=== PATIENT | female | born 1940 | race Caucasian/White ===

== ENCOUNTER 2016-08-24 14:48 | Inpatient (IN) | payer MEDICARE ==
--- NOTE | 2016-08-24 15:21 | EDPRACDOC ---
- General Information Chief Complaint: Dyspnea/Resp distress Stated Complaint: OXYGEN LOW Time Seen by Provider: 08/24/16 15:05 Information Source: Patient Mode Of Arrival: Car Home Medications: Home Medications Albuterol Sulfate [Proair Hfa] 2 puff INH Q4-6H PRN 08/24/16 Azithromycin [Zithromax] 0 mg PO DAILY 08/24/16 Levothyroxine Sodium [Synthroid] 50 mcg PO DAILY 08/24/16 Metoprolol Tartrate [Lopressor] 25 mg PO BID 08/24/16 Pravastatin [Pravachol] 40 mg PO HS 08/24/16 Prednisone [Sterapred] 5 mg PO . DIR 08/24/16 Allergies/Adverse Reactions: Allergies Allergy/AdvReac Type Severity Reaction Status Date / Time No Known Allergies Allergy Verified 08/24/16 14:54 - History of Present Illness HPI: COUGH, SOB SINCE THURSDAY LAST WEEK. SEEN BY PCP DR PEREZ WED. GOT KENALOG IM AND Z BERTIN. GETTING WORSE, MORE SOB. SENT BY DR PEREZ TODAY. GOT ROCEPHIN IM TODAY AND DUONEB. H/O COPD, USES INHALER AND NEBULIZER AT HOME. NO FEVER. SOMETIMES PRODUCTIVE COUGH-WHITE. DIARRHEA TODAY. O2 SAT 90% IN OFFICE. SOB WORSE WITH EXERTION. Shortness of Breath: Moderate ED Past Medical History - History Reviewed Yes Nurses notes reviewed and agree except as marked - Patient Medical History Cardiac History: Reports: Hypertension, Hypercholesterolemia Respiratory History: Reports: COPD EDM Review of Systems - Review of Systems ROS Negative Except as Marked: Yes All systems reviewed and were negative except as marked Constitutional: Weakness Eyes: No Symptoms Reported Mouth: No Symptoms Reported Respiratory: Cough, Shortness of Breath Cardiovascular: No Symptoms Reported Gastrointestinal: Diarrhea (TODAY. TOOK LOMOTIL) Genitourinary: No Symptoms Reported Neurological: No Symptoms Reported Musculoskeletal: No Symptoms Reported Integumentary: No Symptoms Reported Allergic/Immunologic: No Symptoms Reported Hematologic: No Symptoms Reported - Physical Exam Constitutional: Alert (Awake) Oriented to: Time, Person, Place Last recorded Vital Signs: Last Vital Signs Temp 98.2 F 08/24/16 14:51 Pulse 87 08/24/16 14:51 Resp 18 08/24/16 14:51 BP 148/73 08/24/16 14:51 Pulse Ox 91 08/24/16 14:51 Oxygen Pulse Oxygen Saturation 91 O2 Device Room Air Oxygen Flow Rate Fraction of Inspired Oxygen ( FIO2) - HEENT Head: Normal ( normocephalic) Eye Exam: Normal (PERRL, EOMI, Sclera white) Oropharynx: Normal (Pharynx:Moist without exudate,Gums-no swelling) Nose: No Symptoms Reported (septum midline) Neck: Normal (FROM, trachea at midline) - Respiratory/Cardiovascular Respiratory: Rhonchi, Wheezes Cardiovascular: Normal (RRR without murmur, gallop or rub) - GI Auscultation: Normal (NABS) Palpation: Normal (Soft,No rebound or guarding, non distended) Tenderness: Non tender Dangelo's Sign: Negative - Musculoskeletal Back: Normal (Non-Tender) Extremities: Normal (Normal tone, Pulses 2+ No cyanosis or edema, FROM) - Integumentary Skin: Normal, Warm, Dry Lymphatics: Normal (no adenopathy) - Neurologic Memory Impaired: Normal Motor Function: Normal (Normal tone, Pulses 2+ No cyanosis or edema, FROM) Cranial Nerve: Normal (CN II-X11 intact sensation, strength 5/5) Cerebellar: Normal Mood Description: Normal Perception: Normal ED SOB MDM - Results Result Diagrams: 08/24/16 15:50 08/24/16 15:50 - EKG EKG #1 EKG Time: 16:31 -: Yes EKG interpreted by me Rate: bpm: 95 [place]: Normal Rhythm: NSR ST: Nonsp Comments: ABNORMAL EKG - Departure Yes I personally saw and evaluated the patient. Disposition: Admit IP To This Hospital Condition: Stable Final Diagnosis: Acute exacerbation of chronic obstructive pulmonary disease Acute respiratory failure Qualifiers: Respiratory failure complication: hypoxia Qualified Code(s): J96.01 - Acute respiratory failure with hypoxia Referrals: Anshu Jaramillo MD [Primary Care Provider] - One Week Decision to Admit Time: 16:28 Decision to admit date: 08/24/16 Decision to admit: from ED - Physician Consulted Hospitalist Time Called: 16:28 Provider Called: Javier Sanchez Time [employer] Returned Call: 16:28
[2016-08-24 15:35] LABS: ALLEN'S TEST PASS; BEb 0.3 (+/- 2); TCO2 26.7 MMOL/L (23-27)
[2016-08-24 15:36] LABS: ABG Draw Site Left Radial
[2016-08-24] MEDS ORDERED: ALBUTEROL 0.083% 3 ML NEB NEB ONE (15:39)
[2016-08-24] MEDS: ALBUTEROL 0.083% 3 ML NEB NEB SCH ×3 (15:46→16:03)
[2016-08-24] MEDS ORDERED: METHYLPREDNISOLONE 125 MG/2 ML VIAL IV ONE (15:47)
[2016-08-24 16:05] LABS: AUTOMATED BASOPHIL 0.3 % (0-2); AUTOMATED EOSINOPHIL 0.2 % (0-5); AUTOMATED LYMPH 20.8 % (17-44); AUTOMATED MONOCYTE 3.5 % (3-10); AUTOMATED NEUTROPHIL 75.2 % (45-76); MPV 7.7 fL (7.4-10.4)
[2016-08-24 16:12] LABS: BLOOD UREA NITROGEN 8 MG/DL (7-17); CALCIUM 9.2 MG/DL (8.4-10.2); CALCULATED OSMOLALITY 270 MOs/Kg (270-290); CHLORIDE 101 mEq/L (98-107); GLUCOSE 151 MG/DL (70-99); PARTIAL THROMB. TIME 24.5 SEC (22-35); SODIUM LEVEL 140 mEq/L (137-146); TOTAL PROTEIN 8.1 G/DL (6.3-8.2)
[2016-08-24] MEDS ORDERED: ONDANSETRON HCL 4 MG/2 ML VIAL IV PRN (16:48)
[2016-08-24] MEDS ORDERED: ACETAMINOPHEN 325 MG/TAB TABLET PO PRN (16:48)
[2016-08-24] MEDS ORDERED: ALBUTEROL 0.083% 3 ML NEB NEB PRN (16:48)
--- NOTE | 2016-08-24 17:00 | DIRPT ---
CLINICAL DATA: Cough and shortness of breath. COPD. EXAM: CHEST 2 VIEW COMPARISON: 07/30/2016. FINDINGS: Normal cardiomediastinal silhouette. Hyperinflation. Chronic pleural parenchymal scarring throughout both lung proctor, particularly the upper lung zones, without focal areas of infiltrate or edema. No effusion or pneumothorax. Osteopenia without visible compression fracture. IMPRESSION: COPD. No active disease. Electronically Signed By: Reji Otero M.D. On: 08/24/2016 16:58
--- NOTE | 2016-08-24 17:21 | HISTPHYS ---
- Chief Complaint sob - History of Present Illness This is a 76-year-old female with a history of COPD who was being admitted to the hospital with several days of shortness of breath. She saw her primary care physician 4 days ago in the office, was given a course of azithromycin and some oral steroids, despite this she continued to worsen and went to urgent care today. Where she was given a dose of IM ceftriaxone and sent to the emergency department. She has been very short of breath, satting below 90% at urgent care today. She has also been coughing, with thick white sputum. Denies any chest pain, fevers, abdominal pain, nausea vomiting or abdominal pain. No rashes on the skin. No dizziness, lightheadedness or syncope. - Medical History Cardiac History: Reports: Hypertension, Hypercholesterolemia Respiratory History: Reports: COPD - Medictions/Allergies Allergies No Known Allergies Allergy (Verified 08/24/16 14:54) Home Medications Albuterol Sulfate [Proair Hfa] 2 puff INH Q4-6H PRN 08/24/16 Azithromycin [Zithromax] 0 mg PO DAILY 08/24/16 Levothyroxine Sodium [Synthroid] 50 mcg PO DAILY 08/24/16 Metoprolol Tartrate [Lopressor] 25 mg PO BID 08/24/16 Pravastatin [Pravachol] 40 mg PO HS 08/24/16 Prednisone [Sterapred] 5 mg PO . DIR 08/24/16 - Social History Smoking Status: Never smoker - Review of Systems Yes All systems reviewed and were negative except as marked - Physical Exam Vital Signs: Initial Vitals Temperature 98.2 F 08/24/16 14:51 Pulse Rate 87 08/24/16 14:51 Respiratory Rate 18 08/24/16 14:51 Blood Pressure 148/73 08/24/16 14:51 Pulse Oxygen Saturation 91 08/24/16 14:51 Constitutional: Alert (Awake, Fully oriented, well appearing. No apparent distress) Oriented to: Time, Person, Place - HEENT Head: Normal (normocephalic,atraumatic, trachea midline) Eye: Normal (EOMI, Sclera white) Oropharynx: Normal (moist) Nose: No Symptoms Reported (without discharge or bleeding) Respiratory: Diminished, Rales, Rhonchi, Tachypnea, Wheezes Cardiovascular: Tachycardia - GI Palpation: Normal (soft, non distended and nontender) - Musculoskeletal Extremities: Normal (normal tone, no cyanosis or edema) - Integumentary Skin: Normal (no rashes or lesions) - Neurologic Cranial Nerve: Normal (CN II-XII intact) Mood Description: Normal (Fully oriented and appropiate affect) - Focused CV Perfusion Exam Vital Signs: Last Vital Signs Temp 98.2 F 08/24/16 14:51 Pulse 87 08/24/16 14:51 Resp 26 H 08/24/16 16:03 BP 148/73 08/24/16 14:51 Pulse Ox 91 08/24/16 14:51 - Lab Results Laboratory Tests 08/24/16 08/24/16 08/24/16 15:30 15:50 15:50 WBC 5.3 Hgb 13.8 Plt Count 270 INR pH 7.390 pCO2 42.0 pO2 54.0 L Potassium 4.3 BUN 8 Creatinine 0.50 L Alkaline Phosphatase 86 08/24/16 15:50 WBC Hgb Plt Count INR 1.0 pH pCO2 pO2 Potassium BUN Creatinine Alkaline Phosphatase - Diagnostic Findings Chest x-ray official read is pending at this time, I reviewed the images myself. Hyperventilated, but no consolidation seen. - Assessment (1) Acute exacerbation of chronic obstructive pulmonary disease J44.1 - CHRONIC OBSTRUCTIVE PULMONARY DISEASE W (ACUTE) EXACERBATION Acute With shortness of breath, wheezing, tachypnea increasing work of breathing. Failure of outpatient therapy with steroids and empiric antibiotics. She will be admitted to the hospital for COPD exacerbation, provided supplemental oxygen to keep O2 sats above 90%, she will be treated with aggressive pulmonary toilet including scheduled and p.r.n. bronchodilators and long acting anticholinergics. Empiric IV azithromycin and Rocephin therapy, with steroid burst and taper. (2) Hypothyroid E03.9 - HYPOTHYROIDISM, UNSPECIFIED Acute Continue home dose Synthroid (3) HLD (hyperlipidemia) E78.5 - HYPERLIPIDEMIA, UNSPECIFIED Acute Continue statin Total Time: 48 Critical Care: No Couseling Time (>50% in counseling/coordination): No
[2016-08-24] MEDS ORDERED: NS 500 ML IV ONE (19:45)
[2016-08-24] MEDS: CEFTRIAXONE 1 GM in D5W 100 ML IV SCH (20:01)
[2016-08-24] MEDS: ENOXAPARIN 40 MG/0.4 ML PFS SQ SCH (20:06)
[2016-08-24] MEDS: PRAVASTATIN 40 MG TABLET PO SCH (20:08)
[2016-08-24] MEDS: METOPROLOL TARTRATE 25 MG TAB PO SCH (20:08)
[2016-08-24] MEDS: Albuterol/Ipratropium Neb 3 ML NEB NEB SCH (20:13)
[2016-08-24] MEDS: AZITHROMYCIN 500 MG in D5W 250 ML IV SCH (20:46)
[2016-08-24] MEDS ORDERED: METHYLPREDNISOLONE 125 MG/2 ML VIAL IV SCH (22:00)
[2016-08-24 22:38] LABS: AMORPHOUS OCC; LEUKOCYTES/URINE NEG (NEGATIVE); NITRITE/URINE NEG (NEGATIVE); URINE OCCULT BLOOD NEG (NEG/TRACE)
[2016-08-25] MEDS: Albuterol/Ipratropium Neb 3 ML NEB NEB SCH ×4 (01:43→19:59)
[2016-08-25] MEDS: METHYLPREDNISOLONE 125 MG/2 ML VIAL IV SCH ×4 (05:51→23:37)
[2016-08-25] MEDS ORDERED: LEVOTHYROXINE 25 MCG (0.025 MG) TAB PO SCH (06:00)
[2016-08-25] MEDS ORDERED: LEVOTHYROXINE 50 MCG (0.05 MG) TAB PO SCH (06:00)
[2016-08-25 07:21] LABS: MPV 7.8 fL (7.4-10.4)
[2016-08-25 07:44] LABS: BLOOD UREA NITROGEN 8 MG/DL (7-17); CALCIUM 9.3 MG/DL (8.4-10.2); CALCULATED OSMOLALITY 268 MOs/Kg (270-290); CHLORIDE 100 mEq/L (98-107); GLUCOSE 115 MG/DL (70-99); SODIUM LEVEL 140 mEq/L (137-146)
[2016-08-25] MEDS: METOPROLOL TARTRATE 25 MG TAB PO SCH ×2 (08:14→21:52)
[2016-08-25] MEDS ORDERED: Vaccine Screening Complete SCH (10:00)
[2016-08-25] MEDS: BuPROPion 150 MG SR TAB PO SCH (14:26)
[2016-08-25] MEDS: NICOTINE 21 MG PATCH TOP SCH (14:26)
--- NOTE | 2016-08-25 16:42 | GENMEDPROG ---
Subjective Note: 76-year-old female admitted to the hospital with a severe exacerbation of CHRONIC OBSTRUCTIVE PULMONARY DISEASE. She failed outpatient treatment with antibiotics and oral steroids. Notes Reviewed: Yes Events from last night noted and discussed with Clinical Staff Current Medication List: Reviewed Currently: Reports: SHRESTHA, SOB, Ambulating (Desaturates when ambulates). Denies: Nausea and Vomiting, Abdominal Pain DVT Prophylaxis: Yes - Physical Examination Vital Signs and I&O: Last Vital Signs Temp 99.2 F 08/25/16 14:30 Pulse 107 08/25/16 14:30 Resp 20 08/25/16 14:30 BP 121/59 L 08/25/16 14:30 Pulse Ox 93 08/25/16 14:30 Oxygen Pulse Oxygen Saturation 93 O2 Device Nasal Cannula Oxygen Flow Rate 2 Fraction of Inspired Oxygen ( FIO2) Intake & Output 08/22/16 08/23/16 08/24/16 08/25/16 23:59 23:59 23:59 23:59 Intake Total 200 760 Output Total 100 1200 Balance 100 -440 Patient's weight 45.926 kg 46.765 kg General: Alert, Oriented x3, No acute distress, Well appearing, Well nourished HEENT: Normal (Normocephalic, atraumatic;EOMI.Sclera white, Nares patent, without discharge or bleeding. No oropharyngeal lesions or erythema. Mucous membranes are dry.) Neck: Non-tender, Full range of motion, Normal Trachea alignment, Normal inspection (No cervical lymphadenopathy. No supraclavicular lymphadenopathy.), No Masses palpable, Supple Lymphatics: Normal (No lymph node swelling or pain.) Respiratory: Diminished, Rales, Rhonchi, Tachypnea, Wheezes Cardiovascular: Regular rate and rhythm (No bradycardia or tachycardia), Normal S1, No Gallops,Rubs/Murmurs, Normal S2, Good Pedal Pulses (DP pulses 2+ bilaterally) GI: Normal bowel sounds (normal active sounds), Soft (non-distended), Non tender , No hepatospenomegaly, No masses Extremities/Musculoskeletal: Normal pulses (DP pulses 2+ bilaterally) Skin: Warm,Dry and Intact, No rashes, No significant lesion Neurological: Strength at 5/5 X4 ext (Motor 5/5 throughout.), Normal tone, Cranial nerves 3-12 NL ( 2-12 grossly intact.) Lab/DI/Studies Reviewed: Abnormal Lab Results 08/24/16 08/25/16 08/25/16 22:22 06:18 06:18 RBC 4.19 L Anion Gap 17 H Creatinine 0.50 L Glucose 115 H Calculated Osmolality 268 L Urine Glucose (UA) 3+ H - Assessment (1) Acute exacerbation of chronic obstructive pulmonary disease Acute J44.1 - CHRONIC OBSTRUCTIVE PULMONARY DISEASE W (ACUTE) EXACERBATION Comment/Plan: With shortness of breath, wheezing, tachypnea increasing work of breathing. Failure of outpatient therapy with steroids and empiric antibiotics. She will be admitted to the hospital for COPD exacerbation, provided supplemental oxygen to keep O2 sats above 90%, she will be treated with aggressive pulmonary toilet including scheduled and p.r.n. bronchodilators and long acting anticholinergics. Empiric IV azithromycin and Rocephin therapy , with steroid burst and taper. Will check repeat chest x-ray in a.m. to rule out possibility of pneumonia. (2) HLD (hyperlipidemia) Acute E78.5 - HYPERLIPIDEMIA, UNSPECIFIED Qualifiers: Hyperlipidemia type: other hyperlipidemia Qualified Code(s): E78.4 - Other hyperlipidemia Comment/Plan: Continue statin (3) Hypothyroid Acute E03.9 - HYPOTHYROIDISM, UNSPECIFIED Qualifiers: Hypothyroidism type: due to non-medication exogenous substances Qualified Code(s): E03.2 - Hypothyroidism due to medicaments and other exogenous substances Comment/Plan: Continue home dose Synthroid - Plan Hopefully home when able to ambulate without desaturation. Case Care Discussed with: Patient, Family Education/Counseling Given To: Patient, Family Member Education/Counseling Given Regarding: Diagnosis, Treatment, Prognosis, Follow Up , Disposition Plan Total Time: 45 minutes Critical Care: No Couseling Time (>50% in counseling/coordination): No
[2016-08-25] MEDS: CEFTRIAXONE 1 GM in D5W 100 ML IV SCH (17:18)
[2016-08-25] MEDS: ENOXAPARIN 40 MG/0.4 ML PFS SQ SCH (17:18)
[2016-08-25] MEDS: AZITHROMYCIN 500 MG in D5W 250 ML IV SCH (19:57)
[2016-08-25] MEDS: PRAVASTATIN 40 MG TABLET PO SCH (21:53)
[2016-08-26] MEDS: Albuterol/Ipratropium Neb 3 ML NEB NEB SCH ×4 (01:39→21:16)
[2016-08-26] MEDS ORDERED: LEVOTHYROXINE 50 MCG (0.05 MG) TAB PO SCH (06:00)
[2016-08-26] MEDS: METHYLPREDNISOLONE 125 MG/2 ML VIAL IV SCH ×3 (06:06→21:34)
[2016-08-26] MEDS: LEVOTHYROXINE 25 MCG (0.025 MG) TAB PO SCH (06:07)
[2016-08-26 07:20] LABS: MPV 7.8 fL (7.4-10.4)
[2016-08-26 08:15] LABS: BLOOD UREA NITROGEN 12 MG/DL (7-17); CALCIUM 9.4 MG/DL (8.4-10.2); CALCULATED OSMOLALITY 272 MOs/Kg (270-290); CHLORIDE 101 mEq/L (98-107); GLUCOSE 119 MG/DL (70-99); SODIUM LEVEL 141 mEq/L (137-146)
[2016-08-26] MEDS: METOPROLOL TARTRATE 25 MG TAB PO SCH ×2 (08:40→20:03)
[2016-08-26] MEDS: BuPROPion 150 MG SR TAB PO SCH (08:40)
--- NOTE | 2016-08-26 09:15 | DIRPT ---
CLINICAL DATA: COPD exacerbation, recent treatment with oral antibiotics and steroids, wheezing on exam. EXAM: CHEST 2 VIEW COMPARISON: PA and lateral chest x-ray of August 24, 2016 FINDINGS: The lungs remain hyperinflated. The interstitial markings remain increased bilaterally. There is no alveolar infiltrate. There is no pleural effusion or pneumothorax. The heart and pulmonary vascularity are normal. There is stable dextrocurvature centered in the mid thoracic spine. The bony thorax otherwise is unremarkable. IMPRESSION: COPD with chronic pulmonary fibrotic changes. There is no alveolar pneumonia nor evidence of CHF. Electronically Signed By: Macros Brewer M.D. On: 08/26/2016 09:13
--- NOTE | 2016-08-26 13:16 | GENMEDPROG ---
Chief Complaint: Feels weak and very tired Subjective Note: 76-year-old female admitted to our facility with a CHRONIC OBSTRUCTIVE PULMONARY DISEASE exacerbation. Her sats were noted to be fairly low and she required oxygen supplementation. Night blood pressure medicines had to be held due to low blood pressure. Patient does not have a history of high blood pressure but those medicines were used to control her heart rate. Notes Reviewed: Yes Events from last night noted and discussed with Clinical Staff Current Medication List: Reviewed Currently: Reports: SHRESTHA, SOB, Ambulating (Desaturates when ambulates). Denies: Nausea and Vomiting, Abdominal Pain DVT Prophylaxis: Yes - Physical Examination Vital Signs and I&O: Last Vital Signs Temp 96.7 F L 08/26/16 09:35 Pulse 84 08/26/16 09:35 Resp 16 08/26/16 09:35 BP 112/52 L 08/26/16 09:35 Pulse Ox 93 08/26/16 09:35 Oxygen Pulse Oxygen Saturation 93 O2 Device Nasal Cannula Oxygen Flow Rate 1 Fraction of Inspired Oxygen ( FIO2) Intake & Output 08/23/16 08/24/16 08/25/16 08/26/16 23:59 23:59 23:59 23:59 Intake Total 200 2068 240 Output Total 100 2550 1050 Balance 100 -902 -810 Patient's weight 45.926 kg 46.765 kg 46.975 kg General: Alert, Oriented x3, No acute distress, Well appearing, Well nourished HEENT: Normal (Normocephalic, atraumatic;EOMI.Sclera white, Nares patent, without discharge or bleeding. No oropharyngeal lesions or erythema. Mucous membranes are dry.) Neck: Non-tender, Full range of motion, Normal Trachea alignment, Normal inspection (No cervical lymphadenopathy. No supraclavicular lymphadenopathy.), No Masses palpable, Supple Lymphatics: Normal (No lymph node swelling or pain.) Respiratory: Diminished, Rales, Rhonchi, Tachypnea, Wheezes Cardiovascular: Regular rate and rhythm (No bradycardia or tachycardia), Normal S1, No Gallops,Rubs/Murmurs, Normal S2, Good Pedal Pulses (DP pulses 2+ bilaterally) GI: Normal bowel sounds (normal active sounds), Soft (non-distended), Non tender , No hepatospenomegaly, No masses Extremities/Musculoskeletal: Normal pulses (DP pulses 2+ bilaterally) Skin: Warm,Dry and Intact, No rashes, No significant lesion Neurological: Strength at 5/5 X4 ext (Motor 5/5 throughout.), Normal tone, Cranial nerves 3-12 NL ( 2-12 grossly intact.) Lab/DI/Studies Reviewed: Abnormal Lab Results 08/26/16 08/26/16 06:48 06:48 WBC 15.6 H RBC 4.08 L MCHC 32.9 L Potassium 5.3 H D Creatinine 0.50 L Glucose 119 H CHEST 2 VIEW COMPARISON: PA and lateral chest x-ray of August 24, 2016 FINDINGS: The lungs remain hyperinflated. The interstitial markings remain increased bilaterally. There is no alveolar infiltrate. There is no pleural effusion or pneumothorax. The heart and pulmonary vascularity are normal. There is stable dextrocurvature centered in the mid thoracic spine. The bony thorax otherwise is unremarkable. IMPRESSION: COPD with chronic pulmonary fibrotic changes. There is no alveolar pneumonia nor evidence of CHF. Electronically Signed By: Marcos Brewer M.D. On: 08/26/2016 09:13 - Assessment (1) Acute exacerbation of chronic obstructive pulmonary disease Acute J44.1 - CHRONIC OBSTRUCTIVE PULMONARY DISEASE W (ACUTE) EXACERBATION Comment/Plan: With shortness of breath, wheezing, tachypnea increasing work of breathing. Failure of outpatient therapy with steroids and empiric antibiotics. She will be admitted to the hospital for COPD exacerbation, provided supplemental oxygen to keep O2 sats above 90%, she will be treated with aggressive pulmonary toilet including scheduled and p.r.n. bronchodilators and long acting anticholinergics. Empiric IV azithromycin and Rocephin therapy , with steroid burst and taper. Pneumonia has been ruled out with repeat chest x-ray. Patient improving will decrease steroid dosing. (2) HLD (hyperlipidemia) Acute E78.5 - HYPERLIPIDEMIA, UNSPECIFIED Qualifiers: Hyperlipidemia type: other hyperlipidemia Qualified Code(s): E78.4 - Other hyperlipidemia Comment/Plan: Continue statin (3) Hypothyroid Acute E03.9 - HYPOTHYROIDISM, UNSPECIFIED Qualifiers: Hypothyroidism type: due to non-medication exogenous substances Qualified Code(s): E03.2 - Hypothyroidism due to medicaments and other exogenous substances Comment/Plan: Continue home dose Synthroid - Plan Hopefully home when able to ambulate without desaturation. Disposition Plan: Home Case Care Discussed with: Patient, Nursing Staff Education/Counseling Given To: Patient Education/Counseling Given Regarding: Diagnosis, Treatment, Prognosis, Follow Up , Disposition Plan Total Time: 35 minutes Critical Care: No Couseling Time (>50% in counseling/coordination): No
[2016-08-26] MEDS: NICOTINE 21 MG PATCH TOP SCH (13:19)
[2016-08-26] MEDS: CEFTRIAXONE 1 GM in D5W 100 ML IV SCH (17:07)
[2016-08-26] MEDS: ENOXAPARIN 40 MG/0.4 ML PFS SQ SCH (17:07)
[2016-08-26] MEDS: AZITHROMYCIN 500 MG in D5W 250 ML IV SCH (20:03)
[2016-08-26] MEDS: PRAVASTATIN 40 MG TABLET PO SCH (20:03)
[2016-08-27] MEDS: Albuterol/Ipratropium Neb 3 ML NEB NEB SCH ×4 (02:30→20:59)
[2016-08-27] MEDS: LEVOTHYROXINE 25 MCG (0.025 MG) TAB PO SCH (06:20)
[2016-08-27] MEDS: METHYLPREDNISOLONE 125 MG/2 ML VIAL IV SCH ×3 (06:21→23:09)
[2016-08-27 07:14] LABS: MPV 7.9 fL (7.4-10.4)
[2016-08-27 07:47] LABS: BLOOD UREA NITROGEN 12 MG/DL (7-17); CALCIUM 8.9 MG/DL (8.4-10.2); CALCULATED OSMOLALITY 269 MOs/Kg (270-290); CHLORIDE 101 mEq/L (98-107); GLUCOSE 103 MG/DL (70-99); SODIUM LEVEL 140 mEq/L (137-146)
[2016-08-27] MEDS: METOPROLOL TARTRATE 25 MG TAB PO SCH ×2 (08:38→20:06)
[2016-08-27] MEDS: BuPROPion 150 MG SR TAB PO SCH (08:39)
[2016-08-27] MEDS: NICOTINE 21 MG PATCH TOP SCH (13:19)
[2016-08-27] MEDS: NICOTINE 14 MG PATCH TOP SCH (17:25)
[2016-08-27] MEDS: CEFTRIAXONE 1 GM in D5W 100 ML IV SCH (17:26)
[2016-08-27] MEDS: ENOXAPARIN 40 MG/0.4 ML PFS SQ SCH (17:26)
[2016-08-27] MEDS: AZITHROMYCIN 500 MG in D5W 250 ML IV SCH (20:00)
[2016-08-27] MEDS: PRAVASTATIN 40 MG TABLET PO SCH (20:07)
--- NOTE | 2016-08-27 20:32 | GENMEDPROG ---
Chief Complaint: States the she mentioned some mild wheezing, but less short of breath and is coughing up scant white sputum. Notes Reviewed: Yes Events from last night noted and discussed with Clinical Staff Current Medication List: Reviewed Currently: Reports: SHRESTHA, SOB, Ambulating (Desaturates when ambulates). Denies: Nausea and Vomiting, Abdominal Pain DVT Prophylaxis: Yes - Physical Examination Vital Signs and I&O: Last Vital Signs Temp 98.5 F 08/27/16 17:28 Pulse 86 08/27/16 20:06 Resp 18 08/27/16 20:06 BP 134/56 L 08/27/16 20:06 Pulse Ox 93 08/27/16 20:06 Oxygen Pulse Oxygen Saturation 93 O2 Device Nasal Cannula Oxygen Flow Rate 2 Fraction of Inspired Oxygen ( FIO2) Intake & Output 08/24/16 08/25/16 08/26/16 08/27/16 23:59 23:59 23:59 23:59 Intake Total 200 2068 1205 360 Output Total 100 2550 3100 Balance 100 -202 -7205 360 Patient's weight 45.926 kg 46.765 kg 46.975 kg 47.627 kg General: Alert, Oriented x3, No acute distress, Well appearing, Well nourished HEENT: Normal (Normocephalic, atraumatic;EOMI.Sclera white, Nares patent, without discharge or bleeding. No oropharyngeal lesions or erythema. Mucous membranes are dry.) Neck: Non-tender, Full range of motion, Normal Trachea alignment, Normal inspection (No cervical lymphadenopathy. No supraclavicular lymphadenopathy.), No Masses palpable, Supple Lymphatics: Normal (No lymph node swelling or pain.) Respiratory: Diminished, Wheezes (Occasional expiratory wheeze). negative: Rales, Rhonchi, Stridor, Tachypnea Cardiovascular: Regular rate and rhythm (No bradycardia or tachycardia), Normal S1, No Gallops,Rubs/Murmurs, Normal S2, Good Pedal Pulses (DP pulses 2+ bilaterally) GI: Normal bowel sounds (normal active sounds), Soft (non-distended), Non tender , No hepatospenomegaly, No masses Extremities/Musculoskeletal: Normal pulses (DP pulses 2+ bilaterally) Skin: Warm,Dry and Intact, No rashes, No significant lesion Neurological: Strength at 5/5 X4 ext (Motor 5/5 throughout.), Normal tone, Cranial nerves 3-12 NL ( 2-12 grossly intact.) Psych/Mental Status: Appropriate, Normal Affect Lab/DI/Studies Reviewed: 08/27/16 06:30 08/27/16 06:30 Laboratory Results - last 24 hr 08/27/16 08/27/16 06:30 06:30 WBC 14.4 H RBC 4.16 L Hgb 13.1 Hct 39.3 MCV 95 MCH 31.6 MCHC 33.4 RDW 13.0 Plt Count 302 MPV 7.9 Sodium 140 Potassium 4.8 Chloride 101 Carbon Dioxide 29 Anion Gap 15 BUN 12 Creatinine 0.50 L Estimated GFR (MDRD) > 60 Glucose 103 H Calculated Osmolality 269 L Calcium 8.9 - Assessment (1) Acute exacerbation of chronic obstructive pulmonary disease Acute J44.1 - CHRONIC OBSTRUCTIVE PULMONARY DISEASE W (ACUTE) EXACERBATION Comment/Plan: With shortness of breath, wheezing, tachypnea increasing work of breathing. Failure of outpatient therapy with steroids and empiric antibiotics. She will be admitted to the hospital for COPD exacerbation, provided supplemental oxygen to keep O2 sats above 90%, she will be treated with aggressive pulmonary toilet including scheduled and p.r.n. bronchodilators and long acting anticholinergics. Empiric IV azithromycin and Rocephin therapy , with steroid burst and taper. Pneumonia has been ruled out with repeat chest x-ray. Patient improving will decrease steroid dosing. (2) Acute respiratory failure Acute J96.00 - ACUTE RESPIRATORY FAILURE, UNSP W HYPOXIA OR HYPERCAPNIA Qualifiers: Respiratory failure complication: hypoxia Qualified Code(s): J96.01 - Acute respiratory failure with hypoxia (3) HLD (hyperlipidemia) Acute E78.5 - HYPERLIPIDEMIA, UNSPECIFIED Qualifiers: Hyperlipidemia type: other hyperlipidemia Qualified Code(s): E78.4 - Other hyperlipidemia Comment/Plan: Continue statin (4) Hypothyroid Acute E03.9 - HYPOTHYROIDISM, UNSPECIFIED Qualifiers: Hypothyroidism type: due to non-medication exogenous substances Qualified Code(s): E03.2 - Hypothyroidism due to medicaments and other exogenous substances Comment/Plan: Continue home dose Synthroid (5) Tobacco abuse Acute Z72.0 - TOBACCO USE Comment/Plan: Spent 10 minutes discussing smoking cessation with patient. Disposition Plan: Home soon Case Care Discussed with: Patient, Nursing Staff, Resource Management Education/Counseling Given To: Patient Education/Counseling Given Regarding: Diagnosis Total Time: 36 minutes plus additional 10 minutes discussing smoking cessation Critical Care: No Code: [id number] (12+) (407)
[2016-08-28] MEDS: Albuterol/Ipratropium Neb 3 ML NEB NEB SCH ×4 (01:31→19:42)
[2016-08-28 06:00] VITALS: BMI 20.3
[2016-08-28] MEDS: LEVOTHYROXINE 25 MCG (0.025 MG) TAB PO SCH (06:26)
[2016-08-28] MEDS: METHYLPREDNISOLONE 125 MG/2 ML VIAL IV SCH (06:27)
[2016-08-28 07:09] LABS: MPV 7.7 fL (7.4-10.4)
[2016-08-28 07:20] LABS: BLOOD UREA NITROGEN 14 MG/DL (7-17); CALCIUM 8.8 MG/DL (8.4-10.2); CALCULATED OSMOLALITY 270 MOs/Kg (270-290); CHLORIDE 102 mEq/L (98-107); GLUCOSE 113 MG/DL (70-99); SODIUM LEVEL 139 mEq/L (137-146)
[2016-08-28] MEDS: METOPROLOL TARTRATE 25 MG TAB PO SCH ×2 (08:22→20:22)
[2016-08-28] MEDS: BuPROPion 150 MG SR TAB PO SCH ×2 (08:22→20:22)
[2016-08-28] MEDS ORDERED: METHYLPREDNISOLONE 40 MG/1 ML VIAL IV SCH (14:00)
[2016-08-28] MEDS ORDERED: Medication Special Instructions SCH (14:00)
--- NOTE | 2016-08-28 16:05 | GENMEDPROG ---
Chief Complaint: less sob Notes Reviewed: Yes Events from last night noted and discussed with Clinical Staff Current Medication List: Reviewed Currently: Reports: SHRESTHA, SOB, Ambulating (Desaturates when ambulates). Denies: Nausea and Vomiting, Abdominal Pain DVT Prophylaxis: Yes - Physical Examination Vital Signs and I&O: Last Vital Signs Temp 97.7 F 08/28/16 14:00 Pulse 80 08/28/16 14:00 Resp 20 08/28/16 14:00 BP 177/78 08/28/16 14:00 Pulse Ox 98 08/28/16 14:00 Oxygen Pulse Oxygen Saturation 98 O2 Device Nasal Cannula Oxygen Flow Rate 1 Fraction of Inspired Oxygen ( FIO2) Intake & Output 08/25/16 08/26/16 08/27/16 08/28/16 23:59 23:59 23:59 23:59 Intake Total 2068 1205 360 813 Output Total 2550 3100 900 800 Balance -482 -1895 -540 13 Patient's weight 46.765 kg 46.975 kg 47.627 kg 47.287 kg General: Alert, Oriented x3, No acute distress, Well appearing, Well nourished HEENT: Normal (Normocephalic, atraumatic;EOMI.Sclera white, Nares patent, without discharge or bleeding. No oropharyngeal lesions or erythema. Mucous membranes are dry.) Neck: Non-tender, Full range of motion, Normal Trachea alignment, Normal inspection (No cervical lymphadenopathy. No supraclavicular lymphadenopathy.), No Masses palpable, Supple Lymphatics: Normal (No lymph node swelling or pain.) Respiratory: Diminished. negative: Rales, Rhonchi, Stridor, Tachypnea, Wheezes Cardiovascular: Regular rate and rhythm (No bradycardia or tachycardia), Normal S1, No Gallops,Rubs/Murmurs, Normal S2, Good Pedal Pulses (DP pulses 2+ bilaterally) GI: Normal bowel sounds (normal active sounds), Soft (non-distended), Non tender , No hepatospenomegaly, No masses Extremities/Musculoskeletal: Normal pulses (DP pulses 2+ bilaterally) Skin: Warm,Dry and Intact, No rashes, No significant lesion Neurological: Strength at 5/5 X4 ext (Motor 5/5 throughout.), Normal tone, Cranial nerves 3-12 NL ( 2-12 grossly intact.) Psych/Mental Status: Appropriate, Normal Affect Lab/DI/Studies Reviewed: 08/28/16 05:55 08/28/16 05:55 Laboratory Results - last 24 hr 08/28/16 08/28/16 05:55 05:55 WBC 9.7 RBC 4.22 Hgb 13.3 Hct 39.4 MCV 93 MCH 31.6 MCHC 33.8 RDW 13.2 Plt Count 303 MPV 7.7 Sodium 139 Potassium 4.9 Chloride 102 Carbon Dioxide 29 Anion Gap 13 BUN 14 Creatinine 0.50 L Estimated GFR (MDRD) > 60 Glucose 113 H Calculated Osmolality 270 Calcium 8.8 - Assessment (1) Acute exacerbation of chronic obstructive pulmonary disease Acute J44.1 - CHRONIC OBSTRUCTIVE PULMONARY DISEASE W (ACUTE) EXACERBATION Comment/Plan: With shortness of breath, wheezing, tachypnea increasing work of breathing. Failure of outpatient therapy with steroids and empiric antibiotics. She will be admitted to the hospital for COPD exacerbation, provided supplemental oxygen to keep O2 sats above 90%, she will be treated with aggressive pulmonary toilet including scheduled and p.r.n. bronchodilators and long acting anticholinergics. Empiric IV azithromycin and Rocephin therapy , with steroid burst and taper. Pneumonia has been ruled out with repeat chest x-ray. Patient improving will decrease steroid dosing. (2) Uncontrolled hypertension Acute I10 - ESSENTIAL (PRIMARY) HYPERTENSION Comment/Plan: Continue previous Toprol and start Diovan 160 mg/day (3) Acute respiratory failure Acute J96.00 - ACUTE RESPIRATORY FAILURE, UNSP W HYPOXIA OR HYPERCAPNIA Qualifiers: Respiratory failure complication: hypoxia Qualified Code(s): J96.01 - Acute respiratory failure with hypoxia Comment/Plan: supplemental O2 as ordered. (4) HLD (hyperlipidemia) Acute E78.5 - HYPERLIPIDEMIA, UNSPECIFIED Qualifiers: Hyperlipidemia type: other hyperlipidemia Qualified Code(s): E78.4 - Other hyperlipidemia Comment/Plan: Continue statin (5) Hypothyroid Acute E03.9 - HYPOTHYROIDISM, UNSPECIFIED Qualifiers: Hypothyroidism type: due to non-medication exogenous substances Qualified Code(s): E03.2 - Hypothyroidism due to medicaments and other exogenous substances Comment/Plan: Continue home dose Synthroid (6) Tobacco abuse Acute Z72.0 - TOBACCO USE Comment/Plan: Spent 10 minutes discussing smoking cessation with patient. Case Care Discussed with: Patient, Family, Nursing Staff, Resource Management Education/Counseling Given To: Patient, Family Member Education/Counseling Given Regarding: Diagnosis, Treatment Total Time: 38 min Critical Care: No Code: 23374 (12+)
[2016-08-28] MEDS: NICOTINE 14 MG PATCH TOP SCH (17:00)
[2016-08-28] MEDS ORDERED: VALSARTAN 80 MG TAB PO SCH (17:00)
[2016-08-28] MEDS: ENOXAPARIN 40 MG/0.4 ML PFS SQ SCH (17:41)
[2016-08-28] MEDS: CEFTRIAXONE 1 GM in D5W 100 ML IV SCH (17:41)
[2016-08-28] MEDS: AZITHROMYCIN 500 MG in D5W 250 ML IV SCH (20:15)
[2016-08-28] MEDS: PRAVASTATIN 40 MG TABLET PO SCH (20:22)
[2016-08-29] MEDS: Albuterol/Ipratropium Neb 3 ML NEB NEB SCH ×2 (01:20→08:37)
[2016-08-29] MEDS ORDERED: METHYLPREDNISOLONE 40 MG/1 ML VIAL IV SCH (03:00)
[2016-08-29] MEDS: LEVOTHYROXINE 25 MCG (0.025 MG) TAB PO SCH (05:28)
[2016-08-29 07:10] LABS: MPV 7.5 fL (7.4-10.4)
[2016-08-29 07:30] LABS: BLOOD UREA NITROGEN 16 MG/DL (7-17); CALCULATED OSMOLALITY 269 MOs/Kg (270-290); CHLORIDE 100 mEq/L (98-107); GLUCOSE 100 MG/DL (70-99); SODIUM LEVEL 139 mEq/L (137-146)
[2016-08-29] MEDS ORDERED: VALSARTAN 160 MG TAB PO SCH (09:00)
[2016-08-29] MEDS: BuPROPion 150 MG SR TAB PO SCH (09:05)
[2016-08-29] MEDS: METOPROLOL TARTRATE 25 MG TAB PO SCH (09:05)
[2016-08-29 10:53] VITALS: BP 129/63; PULSE 81; TEMP 98
[2016-08-29] MEDS ORDERED: Aluminum;Magnesium;Simethicone 30 ML UDC PO PRN (11:16)
--- NOTE | 2016-08-29 11:45 | PCM.DCS92 ---
- Final/Secondary Discharge Diagnosis (1) Acute exacerbation of chronic obstructive pulmonary disease Acute J44.1 - CHRONIC OBSTRUCTIVE PULMONARY DISEASE W (ACUTE) EXACERBATION Present on Admission: Yes Comment: With shortness of breath, wheezing, tachypnea increasing work of breathing. Failure of outpatient therapy with steroids and empiric antibiotics. She will be admitted to the hospital for COPD exacerbation, provided supplemental oxygen to keep O2 sats above 90%, she will be treated with aggressive pulmonary toilet including scheduled and p.r.n. bronchodilators and long acting anticholinergics. Empiric IV azithromycin and Rocephin therapy , with steroid burst and taper. Pneumonia has been ruled out with repeat chest x-ray. Patient improving will decrease steroid dosing. (2) Uncontrolled hypertension Chronic I10 - ESSENTIAL (PRIMARY) HYPERTENSION Present on Admission: Yes Comment: Continue previous Toprol and started Diovan 160 mg/day (3) Acute respiratory failure Resolved J96.00 - ACUTE RESPIRATORY FAILURE, UNSP W HYPOXIA OR HYPERCAPNIA Present on Admission: Yes hypoxia J96.01 - Acute respiratory failure with hypoxia Comment: supplemental O2 as ordered. (4) HLD (hyperlipidemia) Chronic E78.5 - HYPERLIPIDEMIA, UNSPECIFIED Present on Admission: Yes other hyperlipidemia E78.4 - Other hyperlipidemia Comment: Continue statin (5) Hypothyroid Chronic E03.9 - HYPOTHYROIDISM, UNSPECIFIED Present on Admission: Yes due to non-medication exogenous substances E03.2 - Hypothyroidism due to medicaments and other exogenous substances Comment: Continue home dose Synthroid (6) Tobacco abuse Chronic Z72.0 - TOBACCO USE Present on Admission: Yes Comment: Spent 10 minutes discussing smoking cessation with patient. Discharge Disposition: Home Discharge Condition: Improved Cognitive Discharge Status: Unimpaired Fuctional Discharge Status: Independent Physician Follow up/Referrals: Anshu Jaramillo MD [Primary Care Provider] - One Week New Prescriptions: Azithromycin [Zithromax Tri-Trey] 500 mg PO DAILY #3 tablet BuPROPion (BID formulation) [Wellbutrin-Sr] 150 mg PO DAILY #30 tab.sr.12h Cefdinir [Omnicef] 300 mg PO BID #10 capsule Nicotine [Nicoderm] 14 mg TOP Q24H #30 pat Prednisone [Sterapred] 5 mg PO . DIR #1 pack Valsartan [Diovan] 160 mg PO DAILY #30 tablet Discharge Home Medication List Albuterol Sulfate [Proair Hfa] 2 puff INH Q4-6H PRN 08/24/16 [History Confirmed 08/24/16 Last Taken Unknown] Azithromycin [Zithromax] 0 mg PO DAILY 08/24/16 [History Confirmed 08/24/16 Last Taken 08/24/16] Levothyroxine Sodium [Synthroid] 50 mcg PO DAILY 08/24/16 [History Confirmed 09/09 Last Taken 08/24/16] Metoprolol Tartrate [Lopressor] 25 mg PO BID 08/24/16 [History Confirmed Last Taken 08/24/16] Pravastatin [Pravachol] 40 mg PO HS 08/24/16 [History Confirmed 08/24/16 Last Taken Unknown] Azithromycin [Zithromax Tri-Trey] 500 mg PO DAILY #3 tablet 08/29/16 [Rx Last Taken Unknown] BuPROPion (BID formulation) [Wellbutrin-Sr] 150 mg PO DAILY #30 tab.sr.12h 08/29 [Rx Last Taken Unknown] Cefdinir [Omnicef] 300 mg PO BID #10 capsule 08/29/16 [Rx Last Taken Unknown] Nicotine [Nicoderm] 14 mg TOP Q24H #30 pat 08/29/16 [Rx Last Taken Unknown] Prednisone [Sterapred] 5 mg PO . DIR #1 pack 08/29/16 [Rx Last Taken Unknown] Valsartan [Diovan] 160 mg PO DAILY #30 tablet 08/29/16 [Rx Last Taken Unknown] 08/29/16 06:25 08/29/16 06:25 Laboratory Results - last 24 hr 08/29/16 08/29/16 06:25 06:25 WBC 9.4 RBC 4.28 Hgb 13.4 Hct 40.1 MCV 94 MCH 31.4 MCHC 33.5 RDW 13.3 Plt Count 328 MPV 7.5 Sodium 139 Potassium 5.3 H Chloride 100 Carbon Dioxide 31 Anion Gap 13 BUN 16 Creatinine 0.60 Estimated GFR (MDRD) > 60 Glucose 100 H Calculated Osmolality 269 L Calcium 9.0 O2 Device: Nasal Cannula Diet at Discharge: As Tolerated Activity: As Tolerated Discontinue use of:: Alcohol, All Types of Tobacco - DC Summary Notes Hospital Course Note:: Discharge summary on patient named ENRRIQUE CHA admitted to [facility] on 08/24/16 by Guy Archer MD. Date of discharge is []. CC: Dr. Jaramillo Total Time: 40 min Code: 18280 (>30min.) - Physical Exam Vital Signs: Last Vital Signs Temp 98.0 F 08/29/16 10:00 Pulse 81 08/29/16 10:00 Resp 18 08/29/16 10:00 BP 129/63 08/29/16 10:00 Pulse Ox 92 08/29/16 10:00 Oxygen Pulse Oxygen Saturation 92 O2 Device Nasal Cannula Oxygen Flow Rate 1 Fraction of Inspired Oxygen ( FIO2) Constitutional: Alert (Awake, Fully oriented, well appearing. No apparent distress) Oriented to: Time, Person, Place - HEENT Head: Normal (normocephalic,atraumatic, trachea midline) Eye: Normal (EOMI, Sclera white) Oropharynx: Normal (moist) ENT EAC: Normal (No oropharyngeal lesions or erythema. Mucous membranes are dry. ) TMJ: Normal Nose: No Symptoms Reported (without discharge or bleeding) - Respiratory/Cardiovascular Respiratory: Diminished. negative: Rales, Rhonchi, Stridor, Tachypnea, Wheezes Cardiovascular: Normal (RRR , Normal S1, S2. No murmurs, rubs, or gallops. PMI non-displaced. Carotids: no carotid bruits. No bradycardia or tachycardia. DP pulses 2+ bilaterally.) - GI Auscultation: Normal (normal active sounds) Palpation: Normal (soft, non distended and nontender) Tenderness: Non tender (No rebound or guarding) Dangelo's Sign: Negative - Musculoskeletal Back: Normal (Non-Tender) Extremities: Normal (normal tone, no cyanosis or edema) - Integumentary Skin: Normal (Warm dry no rashes) Lymphatics: Normal (No lymph node swelling or pain.) - Neurologic Memory Impaired: Normal Motor Function: Normal (Motor 5/5 throughout.Normal tone, Pulses 2+ No cyanosis or edema, FROM) Cranial Nerve: Normal (CN II-XII intact sensation, strength 5/5) Cerebellar: Normal (Babinski: toes downgoing bilaterally. Intact Finger to nose. Sensory grossly intact to light touch. Intact rapid alternating movements bilaterally. No pronator drift.) Mood Description: Normal (Fully oriented and appropiate affect) Thought: Coherent Perception: Normal (Normal and appropriate affect.)
[2016-08-29] MEDS ORDERED: CEFTRIAXONE 1 GM in D5W 100 ML IV ONE (12:00)
[2016-08-29] MEDS ORDERED: AZITHROMYCIN 250 MG TAB PO ONE (12:00)
[2016-08-29] MEDS ORDERED: PANTOPRAZOLE 40 MG TAB PO SCH (18:00)
== END 2016-08-29 15:05 | disposition home or self-care (01) | DRG 190 ==
LOC: ED 14:48 → MPS3 16:48
PROVIDERS: ADMIT Internal Medicine; ATTEND Internal Medicine
PROC: 039C3ZZ Drainage of Left Radial Artery, Percutaneous Approach (ICD-10-PCS; principal; 2016-08-24)
DX: J44.1 Chronic obstructive pulmonary disease with (acute) exacerbation (principal); J96.01 Acute respiratory failure with hypoxia; I10 Essential (primary) hypertension; E78.4 Other hyperlipidemia; E03.2 Hypothyroidism due to medicaments and other exogenous substances; F17.210 Nicotine dependence, cigarettes, uncomplicated; Z79.899 Other long term (current) drug therapy; E78.00 Pure hypercholesterolemia, unspecified
CPT/HCPCS: 36415; 36600; 71020; 80048; 80053; 81001; 82803; 84484; 85025; 85027; 85610; 85730; 87040; 93005; 94640; 96372; 96374; 98960; 99284; G0237; J0456; J0696; J1650; J2920; J2930; J3490; J7060; J7070; J7620